=== PATIENT | female | born 1995 | race Caucasian/White ===

== ENCOUNTER → 2017-02-05 | Outpatient (CLI) | payer BC ==
[~2017-02-05] MED LIST: TBR.3OP51 OS
[2017-02-05 20:12] VITALS: BP 140/89
--- NOTE | 2017-02-05 20:12 | Urgent Care T Sheet Gen (E) ---
Intake General Temperature (Fahrenheit): 98.5 Pulse: 104 Blood Pressure Systolic: 140 Blood Pressure Diastolic: 89 Respirations: 18 SPO2: 97 Chief Complaint: Ear/Nose/Throat Complaint Description of Symptoms Complains of a scratch to her eye. a Friends baby reached for her face and scratched her left eye. Its been watery and bothersome, vision ok. has a wash cloth with her. has been rubbing it. doesnt wear contacts - this happened about 5 pm tonight. no eyeball pain but watery so much no bleeding no other complaints Source: Patient History of Present Illness Onset & Duration: Hours (5 pm tonight) Timing: Still present Severity: Mild Recent Trauma: No Allergies: Coded Allergies: Nickel (Verified Allergy, 02/05/17) Respiratory Constitutional Symptoms: No syptoms reported EENTM: Eye pain (left eye watery from a scratch) All Other Systems Reviewed Remaining Systems: All other systems reviewed with negative findings Past Lqufkiv-Uwscqv-Idfuql Hx Patient's Social History Alcohol Use: Denies Use Recreational Drug Use: Denies Use Physical Exam Physical Exam General Appearance: WD/WN No apparent distress Eyes, Ears, Nose, Throat Ex: PERRL/EOMI (left eye slight blood shot, hard for her to keep open for me to thoroughly examine- area on left of cornea slight irritation ? abrasion?)No Photophobia Neck Exam: Full range of motion Supple Normal inspection Respiratory Exam: Lungs clear Normal breath sounds No respiratory distress Cardiovascular Exam: Regular rate, rhythm Departure Urgent Care Impression Chief Complaint: UC Ear/Nose/Throat Complaint Impression: Primary Impression: Abrasion of left eye Qualified Code: S05.92XA - Unspecified injury of left eye and orbit, initial encounter Departure Disposition: 01 HOME OR SELF-CARE Condition: Stable Referrals: MARQUIS CALDERON MD (PCP) Additional Instructions: Long talk with her rest hydrate tylenol as needed for pain or fever no rubbing , no contacts f/u Eye doctor next week if no improvement- she agrees to plan of care, Any change in vision or severe eye ball pain go to the ED Scripts Tobramycin Sulf (Tobrex 0.3% Ophthalmic Solution)5 Ml Soln2 Drops OS Q4H #1 BTL 2 drops to left eye q4h x 5 days Prov:ESTEFANI KARIMI APRN () 02/05/17 End of report . ESTEFANI KARIMI APRN () Feb 05, 2017 20:12
== END ==
LOC: MHUC 19:51
PROVIDERS: ATTEND Nurse Practitioner
DX: S00.212A Abrasion of left eyelid and periocular area, initial encounter (principal); W50.4XXA Accidental scratch by another person, initial encounter
CPT/HCPCS: 99213